=== PATIENT | male | born 1955 ===

== ENCOUNTER → 2017-08-25 | Day surgery (SDC) | payer OTHER ==
[2017-08-10 09:05] VITALS: Ht 177.8 cm; Wt 88.6 kg
[~2017-08-25] VITALS: Ht 177.8 cm; Wt 88.6 kg
[~2017-08-25] MED LIST: CEFAZOLIN 2000MG IV PUSH 10 ML IV SCH; DEXL60CA4 PO; LACTATED RINGER'S 1000ML 1,000 ML IV SCH
== END | disposition home or self-care (01) ==
LOC: EDSTATUS 08:30 → C.PAT 13:25
PROVIDERS: ATTEND Orthopaedic Surgery
DX: G56.01 Carpal tunnel syndrome, right upper limb (principal)